=== PATIENT | female | born 1930 | race Caucasian/White ===

== ENCOUNTER 2017-05-22 16:27 | Emergency (ER) | payer MEDICARE, OTHER ==
[~2017-05-22] VITALS: Ht 165.1 cm; Wt 68.3 kg
[~2017-05-22 16:27] MED LIST changes: -CEPH500C24; -CLON-329
--- NOTE | 2017-05-22 16:31 | ER Report ---
History and Physical Time Seen By MD: 16:30 HPI/ROS CHIEF COMPLAINT: Fall, right hip pain, not acting right. HISTORY OF PRESENT ILLNESS: 86-year-old female patient presents to emergency room with complaint of fall, right hip pain and not acting right. Patient lives at home by herself, however she does have a caregiver the comes in and helps her. She states that today she's had a fever. She states that she has not had as much energy. She's also been complaining of right hip pain. Patient did have a fall yesterday, which required assistance getting up as well as a fall this morning. Patient denies any loss of consciousness, however she has had a fever of 101. patient has not had any changes in her medication. She normally takes tramadol for her pain. She denies any nausea, vomiting or diarrhea. Patient does have no complaints of chest pain. REVIEW OF SYSTEMS: Respiratory: No cough, no dyspnea. Cardiovascular: No chest pain, no palpitations. Gastrointestinal: No vomiting, no abdominal pain. Musculoskeletal: No back pain. Allergies: Coded Allergies: Sulfa (Sulfonamide Antibiotics) (Verified Allergy, Severe, RASH, 05/22/17) ciprofloxacin (Verified Allergy, Severe, SEIZURE, 05/22/17) levofloxacin (Verified Allergy, Unknown, 05/22/17) tetracycline (Verified Allergy, Unknown, UNKNOWN, 05/22/17) meperidine (Verified Adverse Reaction, Severe, LOWERS BP SEVERELY, 05/22/17 ) nitrofurantoin (Verified Adverse Reaction, Severe, SEIZURES, 05/22/17) Home Meds Reported Medications Cephalexin Monohydrate (CEPHALEXIN) 500 Mg Cap, QID 05/22/17 Clonidine Hcl (CLONIDINE HCL) 0.2 Mg Tablet, QDAY 05/22/17 Acetaminophen (TYLENOL) 325 Mg Tablet, 325 MG PO PRN Y for PAIN, TAB 12/21/16 Tolterodine Tartrate (TOLTERODINE TARTRATE) 2 Mg Tablet, 1 TAB PO QDAY 12/21/16 Tramadol Hcl (TRAMADOL HCL) 50 Mg Tablet, 2 TAB PO BID, TAB 12/21/16 Amlodipine Besylate (AMLODIPINE BESYLATE) 5 Mg Tablet, 1 TAB PO QDAY, TAB 12/21/16 Valsartan (DIOVAN) 320 Mg Tablet, 1 TAB PO QDAY 12/21/16 Divalproex Sodium (DEPAKOTE) 250 Mg Tablet.dr, 250 MG PO BID, TAB 12/21/16 Discontinued Reported Medications Clonidine Hcl (CLONIDINE HCL) Unknown Strength Tablet, PO QDAY, TAB 12/21/16 Discontinued Scripts Clindamycin Hcl (CLINDAMYCIN HCL) 300 Mg Capsule, 300 MG PO Q6H, #40 CAPSULE 0 Refills Prov:EDIS SALAZAR MD 12/23/16 Past Medical/Surgical History Patient has a past medical history of seizures, hyperlipidemia, hypertension, COPD, Crohn's disease, cholecystitis, urinary incontinence, arthritis, depression. Patient has surgical history of cataract removal, orthopedic surgery, incarcerated hernia with bowel resection, appendectomy. Patient has a family medical history of cancer, CAD, stroke. Reviewed Nurses Notes: Yes Hx Smoking: No Smoking Status: Never Smoker Exposure to Second Hand Smoke?: No Hx Substance Use Disorder: No Hx Alcohol Use: No Constitutional Vital Sign - Last 24 Hours 05/22/17 05/22/17 05/22/17 05/22/17 16:27 16:27 16:31 16:32 Temp 99.5 Pulse 87 95 Resp 16 B/P (MAP) 131/86 131/86 (101) Pulse Ox 93 84 O2 Delivery Nasal Cannula O2 Flow Rate 3.5 05/22/17 05/22/17 05/22/17 05/22/17 16:37 16:42 16:47 16:52 Pulse 93 83 83 86 Resp 55 50 37 24 Pulse Ox 94 97 95 94 05/22/17 05/22/17 05/22/17 05/22/17 16:57 17:00 17:02 17:07 Pulse 83 83 81 Resp 26 33 31 B/P (MAP) 181/94 (123) Pulse Ox 94 97 97 05/22/17 05/22/17 05/22/17 05/22/17 17:12 17:17 17:22 17:27 Pulse 81 86 86 79 Resp 41 26 23 21 Pulse Ox 96 92 93 95 05/22/17 05/22/17 05/22/17 05/22/17 17:30 17:32 17:37 17:42 Pulse 78 77 78 Resp 21 22 22 B/P (MAP) 158/78 (104) Pulse Ox 95 94 95 05/22/17 05/22/17 05/22/17 05/22/17 17:47 17:52 17:57 18:00 Pulse 76 75 77 Resp 17 20 20 B/P (MAP) 160/74 (102) Pulse Ox 94 95 97 05/22/17 05/22/17 05/22/17 18:02 18:07 18:12 Pulse 75 75 81 Resp 19 21 19 Pulse Ox 96 95 92 Intake and Output 05/22/17 05/22/17 05/23/17 15:00 23:00 07:00 Intake Total 100 ml Output Total 100 ml Balance 0 ml Physical Exam General Appearance: The patient is alert, has no immediate need for airway protection and no current signs of toxicity. ENT: Tympanic membranes are pearly-parr, auditory canals are patent, mucous membranes are moist. Respiratory: Chest is non tender, lungs are clear to auscultation. Cardiac: regular rate and rhythm Gastrointestinal: Abdomen is soft and non tender, no masses, bowel sounds normal. Musculoskeletal: Neck: Neck is supple and non tender. Extremities have full range of motion and are non tender. Patient has tenderness to the right hip, there is no bruising noted. Skin: No rashes or lesions. DIFFERENTIAL DIAGNOSIS: After history and physical exam differential diagnosis was considered for urinary tract infection, influenza, hip fracture, hip contusion, OR. Medical Decision Making Data Points Result Diagram: 05/22/17 1625 05/22/17 1625 Laboratory Hematology Test 05/22/17 16:25 05/22/17 16:40 05/22/17 16:55 Red Blood Count 3.70 M/uL (4.17-5.56) Mean Corpuscular Volume 83.3 fL (80.0-96.0) Mean Corpuscular Hemoglobin 27.5 pg (26.0-33.0) Mean Corpuscular Hemoglobin Concent 33.0 g/dL (32.0-36.0) Red Cell Distribution Width 14.8 % (11.5-14.5) Mean Platelet Volume 7.5 fL (7.2-11.1) Neutrophils (%) (Auto) 82.6 % (39.4-72.5) Lymphocytes (%) (Auto) 9.2 % (17.6-49.6) Monocytes (%) (Auto) 6.1 % (4.1-12.4) Eosinophils (%) (Auto) 0.5 % (0.4-6.7) Basophils (%) (Auto) 1.6 % (0.3-1.4) Nucleated RBC Relative Count (auto) 0.0 /100WBC Neutrophils # (Auto) 10.1 K/uL (2.0-7.4) Lymphocytes # (Auto) 1.1 K/uL (1.3-3.6) Monocytes # (Auto) 0.7 K/uL (0.3-1.0) Eosinophils # (Auto) 0.1 K/uL (0.0-0.5) Basophils # (Auto) 0.2 K/uL (0.0-0.1) Nucleated RBC Absolute Count (auto) 0.00 K/uL Sodium Level 134 mmol/L (137-145) Potassium Level 2.7 mmol/L (3.5-5.0) Chloride Level 92 mmol/L (98-107) Carbon Dioxide Level 31 mmol/L (22-31) Blood Urea Nitrogen 19 mg/dl (7-18) Creatinine 0.70 mg/dl (0.52-1.04) Glomerular Filtration Rate Calc > 60.0 Random Glucose 111 mg/dl (75-110) Calcium Level 8.9 mg/dl (8.4-10.2) Total Bilirubin 0.7 mg/dl (0.2-1.3) Aspartate Amino Transf (AST/SGOT) 31 U/L (0-35) Alanine Aminotransferase (ALT/SGPT) 26 U/L (0-56) Alkaline Phosphatase 97 U/L (0-126) Troponin I 0.303 ng/ml C-Reactive Protein 17.7 mg/dl (<1.0) Total Protein 8.4 gm/dl (6.3-8.2) Albumin 3.5 g/dl (3.5-5.0) Influenza Virus Type A (PCR) Negative (NEGATIVE) Influenza Virus Type B (PCR) Negative (NEGATIVE) Urine Color Yellow Urine Clarity Slightly-cloudy Urine pH 5.0 pH (4.8-9.5) Urine Specific [place] 1.016 Urine Protein 30 mg/dL (NEGATIVE) Urine Glucose (UA) Negative mg/dL (NEGATIVE) Urine Ketones Trace mg/dL (NEGATIVE) Urine Blood Large (NEGATIVE) Urine Nitrite Positive (NEGATIVE) Urine Bilirubin Negative (NEGATIVE) Urine Urobilinogen 4.0 mg/dL (0.2-1.9) Urine Leukocyte Esterase Small (NEGATIVE) Urine RBC 21 /HPF (0-2/HPF) Urine WBC 116 /HPF (0-5/HPF) Urine WBC Clumps Few /HPF Urine Squamous Epithelial Cells Few /LPF (NONE-FEW) Urine Amorphous Crystals Few /HPF Urine Bacteria Many /HPF (NONE-FEW) Urine Mucus Few /HPF (NONE-FEW) Chemistry Test 05/22/17 16:25 05/22/17 16:40 05/22/17 16:55 White Blood Count 12.2 k/uL (4.5-11.0) Red Blood Count 3.70 M/uL (4.17-5.56) Hemoglobin 10.2 g/dL (12.0-16.0) Hematocrit 30.9 % (34.0-47.0) Mean Corpuscular Volume 83.3 fL (80.0-96.0) Mean Corpuscular Hemoglobin 27.5 pg (26.0-33.0) Mean Corpuscular Hemoglobin Concent 33.0 g/dL (32.0-36.0) Red Cell Distribution Width 14.8 % (11.5-14.5) Platelet Count 221 K/uL (150-450) Mean Platelet Volume 7.5 fL (7.2-11.1) Neutrophils (%) (Auto) 82.6 % (39.4-72.5) Lymphocytes (%) (Auto) 9.2 % (17.6-49.6) Monocytes (%) (Auto) 6.1 % (4.1-12.4) Eosinophils (%) (Auto) 0.5 % (0.4-6.7) Basophils (%) (Auto) 1.6 % (0.3-1.4) Nucleated RBC Relative Count (auto) 0.0 /100WBC Neutrophils # (Auto) 10.1 K/uL (2.0-7.4) Lymphocytes # (Auto) 1.1 K/uL (1.3-3.6) Monocytes # (Auto) 0.7 K/uL (0.3-1.0) Eosinophils # (Auto) 0.1 K/uL (0.0-0.5) Basophils # (Auto) 0.2 K/uL (0.0-0.1) Nucleated RBC Absolute Count (auto) 0.00 K/uL Glomerular Filtration Rate Calc > 60.0 Calcium Level 8.9 mg/dl (8.4-10.2) Total Bilirubin 0.7 mg/dl (0.2-1.3) Aspartate Amino Transf (AST/SGOT) 31 U/L (0-35) Alanine Aminotransferase (ALT/SGPT) 26 U/L (0-56) Alkaline Phosphatase 97 U/L (0-126) Troponin I 0.303 ng/ml C-Reactive Protein 17.7 mg/dl (<1.0) Total Protein 8.4 gm/dl (6.3-8.2) Albumin 3.5 g/dl (3.5-5.0) Influenza Virus Type A (PCR) Negative (NEGATIVE) Influenza Virus Type B (PCR) Negative (NEGATIVE) Urine Color Yellow Urine Clarity Slightly-cloudy Urine pH 5.0 pH (4.8-9.5) Urine Specific [place] 1.016 Urine Protein 30 mg/dL (NEGATIVE) Urine Glucose (UA) Negative mg/dL (NEGATIVE) Urine Ketones Trace mg/dL (NEGATIVE) Urine Blood Large (NEGATIVE) Urine Nitrite Positive (NEGATIVE) Urine Bilirubin Negative (NEGATIVE) Urine Urobilinogen 4.0 mg/dL (0.2-1.9) Urine Leukocyte Esterase Small (NEGATIVE) Urine RBC 21 /HPF (0-2/HPF) Urine WBC 116 /HPF (0-5/HPF) Urine WBC Clumps Few /HPF Urine Squamous Epithelial Cells Few /LPF (NONE-FEW) Urine Amorphous Crystals Few /HPF Urine Bacteria Many /HPF (NONE-FEW) Urine Mucus Few /HPF (NONE-FEW) Urinalysis Test 05/22/17 16:55 Urine Color Yellow Urine Clarity Slightly-cloudy Urine pH 5.0 pH (4.8-9.5) Urine Specific [place] 1.016 Urine Protein 30 mg/dL (NEGATIVE) Urine Glucose (UA) Negative mg/dL (NEGATIVE) Urine Ketones Trace mg/dL (NEGATIVE) Urine Blood Large (NEGATIVE) Urine Nitrite Positive (NEGATIVE) Urine Bilirubin Negative (NEGATIVE) Urine Urobilinogen 4.0 mg/dL (0.2-1.9) Urine Leukocyte Esterase Small (NEGATIVE) Urine RBC 21 /HPF (0-2/HPF) Urine WBC 116 /HPF (0-5/HPF) Urine WBC Clumps Few /HPF Urine Squamous Epithelial Cells Few /LPF (NONE-FEW) Urine Amorphous Crystals Few /HPF Urine Bacteria Many /HPF (NONE-FEW) Urine Mucus Few /HPF (NONE-FEW) EKG/Imaging EKG Interpretation 12 lead EKG: Rhythm: normal sinus rhythm with PVC Hamer: Left axis deviation QRS: normal ST segments: normal 12 lead EKG at 1854: Rhythm: normal sinus rhythm Hamer: normal QRS: normal ST segments: normal PVCs have resolved at this point in time. Imaging CHEST SINGLE AP Indication: Chest pain. Comparison: May 29, 2012 Findings: There is slight blunting of the right costophrenic angle which may reflect chronic scarring or a trace effusion. Linear platelike atelectasis is seen in the left lung base. No confluent infiltrate or air bronchograms. No pneumothorax. Heart size is mildly enlarged and unchanged. Thoracic aorta is tortuous and atherosclerotic. There is a hiatal hernia. Right paratracheal opacity in the upper chest is unchanged from 2013 and likely related to prominent vascularity. IMPRESSION: 1. Linear atelectasis left lung base. 2. Tiny right effusion versus chronic pleural scarring. Report Dictated By: Gabriele Knight at 05/22/2017 6:06 PM Report E-Signed By: Gabriele Knight at 05/22/2017 6:08 PM EXAMINATION: Right hip 2 views HISTORY: Fever. Right hip pain. COMPARISON: CT abdomen/pelvis 04/20/2012. FINDINGS: The bones are diffusely demineralized, which limits the sensitivity of the exam. There are advanced chronic degenerative changes at the right hip, similar to the prior CT, with significant joint space narrowing and sclerosis. There is stable chronic subchondral cystic change along the femoral head with some mild flattening of the femoral head and chronic remodeling of the acetabulum. No radiographic evidence of acute fracture about the right hip or bony pelvis, allowing for the significant osteopenia. Normal alignment at the left hip. Joint space is preserved on the left. There is gaseous distention of partially visualized bowel loops in the lower abdomen and pelvis.. IMPRESSION: 1. Diffuse osteopenia limits the sensitivity of the exam. 2. 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 3. No radiographic evidence of acute fracture. Report Dictated By: Ugo Pham MD at 05/22/2017 5:58 PM Report E-Signed By: Ugo Pham MD at 05/22/2017 6:03 PM ED Course/Re-evaluation ED Course Patient was admitted to exam room, history and physical were obtained. Differential diagnoses were considered. On examination lungs are clear, heart was regular, patient did have some tenderness to the right hip. A CBC, CMP, chest x-ray, EKG, troponin, urinalysis were obtained. Patient did have an elevated white count of 12.2, patient has significant UTI with positive leukocyte esterase, positive nitrites. EKG showed a normal sinus rhythm with PVCs, left axis deviation, there is no ST elevation noted. The troponin was positive at 0.303. Patient was having frequent PVCs on the rhythm monitor in the room, she did have stretches where she would have a PVC every other beat. I discussed the case with the patient and her caregiver. The patient and caregiver both said that they would prefer to be transferred and be treated sore whether his cardiology. I spoke with Dr. Santana, insulation blanket maker, who stated that she felt this would be an appropriate admission for the hospitalist. I then spoke with Dr. Morris, hospitalist at [facility] who agreed to accept the patient for admission. She requested that the patient be treated for her hypokalemia as well as her urinary tract infection. Patient will have a dose of Rocephin prior to transfer. I discussed this with the patient and her caregiver and they verbalized understanding and agreement with plan. Decision to Disposition Date: May 22, 2017 Decision to Disposition Time: 18:36 Depart Departure Latest Vital Signs Vital Signs Date Time Temp Pulse Resp B/P (MAP) Pulse Ox O2 Delivery O2 Flow Rate FiO2 05/22/17 18:12 81 19 92 05/22/17 18:00 160/74 (102) 05/22/17 16:27 99.5 Nasal Cannula 05/22/17 16:27 3.5 Impression: Primary Impression: NSTEMI (non-ST elevated myocardial infarction) Additional Impressions: UTI (urinary tract infection) Hypokalemia Condition: Condition Unchanged Disposition: XFER TO [facility] Referrals: KELVIN HARE DO (PCP) Problem Qualifiers Additional Impressions: UTI (urinary tract infection) Urinary tract infection type: acute cystitis Hematuria presence: with hematuria Qualified Codes: N30.01 - Acute cystitis with hematuria WARREN PECK May 22, 2017 16:31
[2017-05-22] MEDS ORDERED: CLON-329 (16:35)
[2017-05-22] MEDS ORDERED: CEPH500C24 (16:35)
[2017-05-22] MEDS ORDERED: NS(*) 0.9% 500 ML BAG 500 ML IV ONE (16:37)
--- NOTE | 2017-05-22 16:48 | EKG ---
FACILITY: [facility] PATIENT NAME: LUKE URRUTIA : [id number] MR: [id number] V: [id number] EXAM DATE: ORDERING PHYSICIAN: WARREN PECK TECHNOLOGIST: LIO So Reason : WEAKNESS Blood Pressure : / mmHG Vent. Rate : 088 BPM Atrial Rate : 088 BPM P-R Int : 172 ms QRS Dur : 100 ms QT Int : 354 ms P-R-T Axes : 049 -35 020 degrees QTc Int : 428 ms Sinus rhythm with occasional premature ventricular complexes and premature atrial complexes Left axis deviation Minimal voltage criteria for LVH, may be normal variant Artifact in several leads - repeat if needed Abnormal ECG Confirmed by ELA RUTLEDGE ([id number]) on 05/22/2017 6:39:37 PM Referred By: CISCO Confirmed By:ELA RUTLEDGE
[2017-05-22] MEDS ORDERED: EMS NS 0.9%(*) 1000 ML BAG 1,000 ML IV ONE (16:50)
[2017-05-22 16:51] LABS: PLATELET COUNT, AUTOMATED 221 K/uL (150-450)
[2017-05-22] MEDS ORDERED: KCL (*) 20 MEQ/100 ML PREMIX 100 ML IV ONE (17:00)
[2017-05-22] MEDS ORDERED: traMADol 50 MG TAB PO ONE (17:00)
--- NOTE | 2017-05-22 18:07 | RADIOLOGY IMAGING REPORT ---
[place] [facility] [place] NAME: Carmen Terrazas : 1930 MR: [id number] V: [id number] EXAM DATE: ORDERING PHYSICIAN: WARREN PECK TECHNOLOGIST: Location: [facility] Patient: Carmen Terrazas : 1930 Visit/Account:[id number] Date of Sevice: 05/22/2017 EXAMINATION: Right hip 2 views HISTORY: Fever. Right hip pain. COMPARISON: CT abdomen/pelvis 04/20/2012. FINDINGS: The bones are diffusely demineralized, which limits the sensitivity of the exam. There are advanced chronic degenerative changes at the right hip, similar to the prior CT, with signi ficant joint space narrowing and sclerosis. There is stable chronic subchondral cystic change along t he femoral head with some mild flattening of the femoral head and chronic remodeling of the acetabulu m. No radiographic evidence of acute fracture about the right hip or bony pelvis, allowing for the signi ficant osteopenia. Normal alignment at the left hip. Joint space is preserved on the left. There is gaseous distention of partially visualized bowel loops in the lower abdomen and pelvis.. IMPRESSION: 1. Diffuse osteopenia limits the sensitivity of the exam. 2. 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 3. No radiographic evidence of acute fracture. Report Dictated By: Ugo Pham MD at 05/22/2017 5:58 PM Report E-Signed By: Ugo Pham MD at 05/22/2017 6:03 PM WSN:[id number]
--- NOTE | 2017-05-22 18:11 | RADIOLOGY IMAGING REPORT ---
FACILITY: [facility] [place] PATIENT NAME: Carmen Terrazas : 1930 MR: [id number] V: [id number] EXAM DATE: ORDERING PHYSICIAN: WARREN PECK TECHNOLOGIST: Location: [facility] Patient: Carmen Terrazas : 1930 Visit/Account:[id number] Date of Sevice: 05/22/2017 CHEST SINGLE AP Indication: Chest pain. Comparison: May 29, 2012 Findings: There is slight blunting of the right costophrenic angle which may reflect chronic scarring or a trac e effusion. Linear platelike atelectasis is seen in the left lung base. No confluent infiltrate or ai r bronchograms. No pneumothorax. Heart size is mildly enlarged and unchanged. Thoracic aorta is tortuous and atherosclerotic. There is a hiatal hernia. Right paratracheal opacity in the upper chest is unchanged from 2013 and likely rel ated to prominent vascularity. IMPRESSION: 1. Linear atelectasis left lung base. 2. Tiny right effusion versus chronic pleural scarring. Report Dictated By: Gabriele Knight at 05/22/2017 6:06 PM Report E-Signed By: Gabriele Knight at 05/22/2017 6:08 PM WSN:[id number]
[2017-05-22] MEDS ORDERED: cefTRIAXone(*) 1 GM VIAL 1 GM in NS(*) 0.9% 100 ML ADDVANT BAG 100 ML IVPB ONE (18:30)
[2017-05-22] MEDS ORDERED: fentaNYL CITR 100 MCG/2 ML AMP IVP ONE (18:45)
[2017-05-22 19:30] VITALS: BP 178/79
--- NOTE | 2017-05-22 21:01 | EKG ---
[place] [facility] [place] NAME: LUKE URRUTIA : [id number] MR: [id number] V: [id number] EXAM DATE: ORDERING PHYSICIAN: WARREN PECK TECHNOLOGIST: SHARYN Test Reason : CHEST HEAVINESS Blood Pressure : / mmHG Vent. Rate : 075 BPM Atrial Rate : 075 BPM P-R Int : 170 ms QRS Dur : 098 ms QT Int : 404 ms P-R-T Axes : 069 -29 033 degrees QTc Int : 451 ms Sinus rhythm Left axis deviation U waves present No acute appearing findings When compared with ECG of 22-MAY-2017 16:36, premature ventricular complexes are no longer present premature atrial complexes are no longer present Confirmed by ELA RUTLEDGE ([id number]) on 05/23/2017 5:30:05 AM Referred By: Confirmed By:ELA RUTLEDGE
== END 2017-05-22 19:53 | disposition short-term general hospital (02) ==
LOC: ER 16:31
DX: I21.4 Non-ST elevation (NSTEMI) myocardial infarction (principal); N30.01 Acute cystitis with hematuria; E87.6 Hypokalemia
CPT/HCPCS: 36415; 71045; 73502; 81001; 84484; 85025; 86140; 87040; 87077; 87088; 87186; 87502; 93005; 96361; 96365; 96367; 96375; 99285; A4353; A9270; J0696; J3010; J3480; J7050; 82040; 82247; 82310; 82374; 82435; 82565; 82947; 84075; 84132; 84155; 84295; 84450; 84460; 84520

== ENCOUNTER → 2017-05-22 | Outpatient (CLI) | payer MEDICARE, OTHER ==
[~2017-05-22] MED LIST: ACE325 PO; ACE500 PO; ACET-1966 PO; AML5 PO; AMLO-96 PO; AMLO2.5T74 PO; AMP500 PO; BET25 GT; CALC-465 PO; CEP500 PO; CEPH500C24; CEPH500T7 PO; CHOL100052 PO; CLI150 PO; CLIN300C99 PO; CLON-327 PO; CLON-329; CLON1 PO; DAR100 PO; DIV250 PO; DIVA125C12 PO; DIVA250T84 PO; DOXY-179 PO; EST625 PO; ESTR0.62 PO; EUCT TOP; FAMO20TA9 GT; FURO-1 PO; IBU200 PO; LEV15R INH; LOR5 PO; LOR5/325 PO; LOVA10TA63 PO; LOVA20TA99 PO; MOM PO; NIT100 PO; NIT3 PO; OXYGEN INH; PER PO; SIL20T TOP; TOLT2TAB PO; TRA50 PO; TRAM-420 PO; TRIC15T TOP; TYLENOL ARTHRITIS PO; TYLENOL PM PO; VAL80 PO; VALS320T12 PO
== END ==
LOC: AMB 19:30
PROVIDERS: ATTEND Nurse Practitioner
DX: I21.4 Non-ST elevation (NSTEMI) myocardial infarction (principal); N39.0 Urinary tract infection, site not specified; M25.551 Pain in right hip
CPT/HCPCS: A0425; A0426

== ENCOUNTER → 2017-05-22 | Outpatient (CLI) | payer MEDICARE, OTHER | LOC: AMB 16:05 | PROVIDERS: ATTEND Nurse Practitioner | DX: R53.1 Weakness (principal); R50.9 Fever, unspecified; R41.82 Altered mental status, unspecified | CPT/HCPCS: A0425; A0427 ==

== ENCOUNTER → 2017-05-30 | Outpatient (REF) | payer MEDICARE, OTHER ==
[~2017-05-30] MED LIST changes: +CEPH500C24; +CLON-329
== END ==
LOC: ZZSENDIN 16:56
PROVIDERS: ATTEND Family Medicine
DX: N39.0 Urinary tract infection, site not specified (principal)
CPT/HCPCS: 81001; 87088

== ENCOUNTER 2017-07-03 09:34 | Observation (INO) | payer MEDICARE, OTHER ==
[~2017-07-03 09:34] MED LIST changes: -ASPI81TA94 PO; -CLON-329 PO
--- NOTE | 2017-07-03 09:35 | ER Report ---
History and Physical Time Seen By MD: 09:34 HPI/ROS CHIEF COMPLAINT: Left lower extremity weakness HISTORY OF PRESENT ILLNESS: Patient is a 6-year-old female with history of seizure disorder who states that she thinks she had a seizure last night. She remembers feeling shaking in her left lower extremity. She denies losing consciousness although she does have a history of tonic-clonic and generalized seizures in the past she has not had one of these in quite some time. The reason she is brought to the emergency department today because she was unable to stand and get out of bed. Patient normally walks with a 4 point walker. She was found to have difficulty with balance in using her left lower extremity. She denies any chest pain or pressure. She does report some left arm achiness over the past few weeks. Patient denies any incontinence of urine or stool. She denies any infectious symptoms like fevers or chills. She denies abdominal pain. REVIEW OF SYSTEMS: Constitutional: No fever, no chills. Eyes: No discharge. ENT: No sore throat. Cardiovascular: No chest pain, no palpitations. Respiratory: No cough, no shortness of breath. Gastrointestinal: No abdominal pain, no vomiting. Genitourinary: No hematuria. Musculoskeletal: No back pain. Skin: No rashes. Neurological: Seizure, left lower extremity weakness Allergies: Coded Allergies: Sulfa (Sulfonamide Antibiotics) (Verified Allergy, Severe, RASH, 07/03/17) ciprofloxacin (Verified Allergy, Severe, SEIZURE, 07/03/17) levofloxacin (Verified Allergy, Unknown, 07/03/17) tetracycline (Verified Allergy, Unknown, UNKNOWN, 07/03/17) meperidine (Verified Adverse Reaction, Severe, LOWERS BP SEVERELY, 07/03/17) nitrofurantoin (Verified Adverse Reaction, Severe, SEIZURES, 07/03/17) Home Meds Reported Medications Aspirin (ASPIRIN) 81 Mg Tab.chew, 81 MG PO QDAY, TAB.CHEW 07/03/17 Clonidine Hcl (CLONIDINE HCL) 0.2 Mg Tablet, QDAY 05/22/17 Acetaminophen (TYLENOL) 325 Mg Tablet, 325 MG PO PRN Y for PAIN, TAB 12/21/16 Tolterodine Tartrate (TOLTERODINE TARTRATE) 2 Mg Tablet, 1 TAB PO QDAY 12/21/16 Tramadol Hcl (TRAMADOL HCL) 50 Mg Tablet, 2 TAB PO BID, TAB 12/21/16 Amlodipine Besylate (AMLODIPINE BESYLATE) 5 Mg Tablet, 1 TAB PO QDAY, TAB 12/21/16 Valsartan (DIOVAN) 320 Mg Tablet, 1 TAB PO QDAY 12/21/16 Divalproex Sodium (DEPAKOTE) 250 Mg Tablet.dr, 250 MG PO BID, TAB 12/21/16 Discontinued Reported Medications Cephalexin Monohydrate (CEPHALEXIN) 500 Mg Cap, QID 05/22/17 Past Medical/Surgical History Patient has a past medical history of seizures, hyperlipidemia, hypertension, COPD, Crohn's disease, cholecystitis, urinary incontinence, arthritis, depression. Patient has surgical history of cataract removal, orthopedic surgery, incarcerated hernia with bowel resection, appendectomy. History of bilateral lymphedema left greater than right Hx Smoking: No Smoking Status: Never Smoker Exposure to Second Hand Smoke?: No Hx Substance Use Disorder: No Hx Alcohol Use: No Constitutional Vital Sign - Last 24 Hours 07/03/17 07/03/17 07/03/17 07/03/17 09:39 09:42 09:49 10:04 Temp 99.0 Pulse 70 71 64 Resp 12 14 9 B/P (MAP) 181/79 (113) 181/79 Pulse Ox 92 92 95 O2 Delivery Room Air 07/03/17 07/03/17 07/03/17 07/03/17 10:19 10:24 11:09 11:24 Pulse 62 59 79 67 Resp 11 8 Pulse Ox 96 94 98 100 07/03/17 07/03/17 07/03/17 07/03/17 11:29 11:44 11:59 12:14 Pulse 66 68 63 Pulse Ox 99 100 87 99 Intake and Output 07/03/17 07/03/17 07/04/17 15:00 23:00 07:00 Intake Total 500 ml Output Total 10 ml Balance 490 ml Physical Exam General/Constitutional: Patient is awake, alert, nontoxic and in no acute respiratory distress. Head: Normocephalic and atraumatic. Eyes: Conjunctival clear, Pupils are equal and reactive to light. Extraocular muscles are intact and symmetrical. Sclera are clear and anicteric. Ears:External canals are clear. Tympanic membranes are clear with normal landmarks and light reflex. Nares: No rhinorrhea or bleeding. Turbinates are pink and moist. Oropharyngeal: Mucous membranes are moist. There is no pharyngeal erythema or exudate. There are no palatal petechiae. Uvula is midline and symmetrical. Neck: Supple, no adenopathy. Cardiovascular: Heart is regular rate and rhythm without audible murmurs, rubs or gallops. Pulmonary: Lungs are clear to auscultation bilaterally. There are no wheezes, rales, or rhonchi. Chest rise is symmetrical Abdomen: Soft, nontender, no guarding or peritoneal signs. Extremities: No gross deformities, No peripheral cyanosis. Able to move all 4 extremities. Patient with clubbed left foot Neuro: Alert and oriented X3, Cranial nerves 2 thru 12 are intact and symmetrical. Skin: No rashes, skin is warm dry and well perfused. Medical Decision Making Data Points Result Diagram: 07/03/17 0935 07/03/17 0935 Laboratory Hematology Test 07/03/17 09:35 07/03/17 11:15 Red Blood Count 3.77 M/uL (4.17-5.56) Mean Corpuscular Volume 83.8 fL (80.0-96.0) Mean Corpuscular Hemoglobin 28.1 pg (26.0-33.0) Mean Corpuscular Hemoglobin Concent 33.6 g/dL (32.0-36.0) Red Cell Distribution Width 16.2 % (11.5-14.5) Mean Platelet Volume 7.4 fL (7.2-11.1) Neutrophils (%) (Auto) 73.8 % (39.4-72.5) Lymphocytes (%) (Auto) 15.4 % (17.6-49.6) Monocytes (%) (Auto) 9.7 % (4.1-12.4) Eosinophils (%) (Auto) 0.4 % (0.4-6.7) Basophils (%) (Auto) 0.7 % (0.3-1.4) Nucleated RBC Relative Count (auto) 0.0 /100WBC Neutrophils # (Auto) 6.3 K/uL (2.0-7.4) Lymphocytes # (Auto) 1.3 K/uL (1.3-3.6) Monocytes # (Auto) 0.8 K/uL (0.3-1.0) Eosinophils # (Auto) 0.0 K/uL (0.0-0.5) Basophils # (Auto) 0.1 K/uL (0.0-0.1) Nucleated RBC Absolute Count (auto) 0.00 K/uL Sodium Level 139 mmol/L (137-145) Potassium Level 3.3 mmol/L (3.5-5.0) Chloride Level 96 mmol/L (98-107) Carbon Dioxide Level 30 mmol/L (22-31) Blood Urea Nitrogen 13 mg/dl (7-18) Creatinine 0.80 mg/dl (0.52-1.04) Glomerular Filtration Rate Calc > 60.0 Random Glucose 108 mg/dl (75-110) Calcium Level 8.8 mg/dl (8.4-10.2) Total Bilirubin 0.4 mg/dl (0.2-1.3) Aspartate Amino Transf (AST/SGOT) 21 U/L (0-35) Alanine Aminotransferase (ALT/SGPT) 10 U/L (0-56) Alkaline Phosphatase 108 U/L (0-126) Total Creatine Kinase 36 U/L (30-135) Troponin I < 0.012 ng/ml Total Protein 7.9 gm/dl (6.3-8.2) Albumin 3.5 g/dl (3.5-5.0) Valproic Acid (Depakene) Level 66.6 ug/ml Urine Color Colorless Urine Clarity Clear Urine pH 8.0 pH (4.8-9.5) Urine Specific [place] 1.003 Urine Protein Negative mg/dL (NEGATIVE) Urine Glucose (UA) Negative mg/dL (NEGATIVE) Urine Ketones Negative mg/dL (NEGATIVE) Urine Blood Small (NEGATIVE) Urine Nitrite Negative (NEGATIVE) Urine Bilirubin Negative (NEGATIVE) Urine Urobilinogen Negative mg/dL (0.2-1.9) Urine Leukocyte Esterase Negative (NEGATIVE) Urine RBC 1 /HPF (0-2/HPF) Urine WBC 1 /HPF (0-5/HPF) Urine Squamous Epithelial Cells None /LPF (NONE-FEW) Urine Bacteria Negative /HPF (NONE-FEW) Urine Mucus None /HPF (NONE-FEW) Chemistry Test 07/03/17 09:35 07/03/17 11:15 White Blood Count 8.5 k/uL (4.5-11.0) Red Blood Count 3.77 M/uL (4.17-5.56) Hemoglobin 10.6 g/dL (12.0-16.0) Hematocrit 31.6 % (34.0-47.0) Mean Corpuscular Volume 83.8 fL (80.0-96.0) Mean Corpuscular Hemoglobin 28.1 pg (26.0-33.0) Mean Corpuscular Hemoglobin Concent 33.6 g/dL (32.0-36.0) Red Cell Distribution Width 16.2 % (11.5-14.5) Platelet Count 291 K/uL (150-450) Mean Platelet Volume 7.4 fL (7.2-11.1) Neutrophils (%) (Auto) 73.8 % (39.4-72.5) Lymphocytes (%) (Auto) 15.4 % (17.6-49.6) Monocytes (%) (Auto) 9.7 % (4.1-12.4) Eosinophils (%) (Auto) 0.4 % (0.4-6.7) Basophils (%) (Auto) 0.7 % (0.3-1.4) Nucleated RBC Relative Count (auto) 0.0 /100WBC Neutrophils # (Auto) 6.3 K/uL (2.0-7.4) Lymphocytes # (Auto) 1.3 K/uL (1.3-3.6) Monocytes # (Auto) 0.8 K/uL (0.3-1.0) Eosinophils # (Auto) 0.0 K/uL (0.0-0.5) Basophils # (Auto) 0.1 K/uL (0.0-0.1) Nucleated RBC Absolute Count (auto) 0.00 K/uL Glomerular Filtration Rate Calc > 60.0 Calcium Level 8.8 mg/dl (8.4-10.2) Total Bilirubin 0.4 mg/dl (0.2-1.3) Aspartate Amino Transf (AST/SGOT) 21 U/L (0-35) Alanine Aminotransferase (ALT/SGPT) 10 U/L (0-56) Alkaline Phosphatase 108 U/L (0-126) Total Creatine Kinase 36 U/L (30-135) Troponin I < 0.012 ng/ml Total Protein 7.9 gm/dl (6.3-8.2) Albumin 3.5 g/dl (3.5-5.0) Valproic Acid (Depakene) Level 66.6 ug/ml Urine Color Colorless Urine Clarity Clear Urine pH 8.0 pH (4.8-9.5) Urine Specific [place] 1.003 Urine Protein Negative mg/dL (NEGATIVE) Urine Glucose (UA) Negative mg/dL (NEGATIVE) Urine Ketones Negative mg/dL (NEGATIVE) Urine Blood Small (NEGATIVE) Urine Nitrite Negative (NEGATIVE) Urine Bilirubin Negative (NEGATIVE) Urine Urobilinogen Negative mg/dL (0.2-1.9) Urine Leukocyte Esterase Negative (NEGATIVE) Urine RBC 1 /HPF (0-2/HPF) Urine WBC 1 /HPF (0-5/HPF) Urine Squamous Epithelial Cells None /LPF (NONE-FEW) Urine Bacteria Negative /HPF (NONE-FEW) Urine Mucus None /HPF (NONE-FEW) Toxicology Test 07/03/17 09:35 Valproic Acid (Depakene) Level 66.6 ug/ml Urinalysis Test 07/03/17 11:15 Urine Color Colorless Urine Clarity Clear Urine pH 8.0 pH (4.8-9.5) Urine Specific [place] 1.003 Urine Protein Negative mg/dL (NEGATIVE) Urine Glucose (UA) Negative mg/dL (NEGATIVE) Urine Ketones Negative mg/dL (NEGATIVE) Urine Blood Small (NEGATIVE) Urine Nitrite Negative (NEGATIVE) Urine Bilirubin Negative (NEGATIVE) Urine Urobilinogen Negative mg/dL (0.2-1.9) Urine Leukocyte Esterase Negative (NEGATIVE) Urine RBC 1 /HPF (0-2/HPF) Urine WBC 1 /HPF (0-5/HPF) Urine Squamous Epithelial Cells None /LPF (NONE-FEW) Urine Bacteria Negative /HPF (NONE-FEW) Urine Mucus None /HPF (NONE-FEW) EKG/Imaging Imaging [place] [facility] [place] NAME: Carmen Terrazas : 1930 MR: [id number] V: [id number] EXAM DATE: ORDERING PHYSICIAN: EDIS SALAZAR TECHNOLOGIST: Location: [facility] - [place] Patient: Carmen Terrazas : 1930 Visit/Account:[id number] Date of Sevice: 07/03/2017 HEAD W/O CONTRAST History: weakness TECHNIQUE: Contiguous angled axial images were obtained from the vertex through the base of the skull without intravenous contrast. One of the following dose optimization techniques was utilized in the performance of this exam: Automated exposure control; adjustment of the mA and/or kV according to the patient's size; or use of an iterative reconstruction technique. Specific details can be referenced in the facility's radiology CT exam operational policy. COMPARISON STUDIES: Comparison made to report from March 2012. The images cannot be retrieved. FINDINGS: Ventricles / sulci / fissures: Ventricles sulci are very prominent compatible with global atrophy. Masses / hemorrhage / midline shift: Negative. Intra-axial findings: Mild confluent decreased attenuation in the periventricular white matter. Extra-axial fluid collections: Negative. Intracranial vasculature and dural sinuses: Negative. Skull base / calvarium: Evidence of several old denae holes in the left parietal bone. Scalp: negative Visualized mastoid air cells / paranasal sinuses: Well aerated. Orbits: Evidence of previous cataract surgery. IMPRESSION: No acute pathology identified. Moderately advanced brain atrophy. This may all be related to the patient's advanced age but underlying neurodegenerative disorder such as Alzheimer's disease can also give this appearance. Report Dictated By: Khoa Narvaez MD at 07/03/2017 11:01 AM Report E-Signed By: Khoa Narvaez MD at 07/03/2017 11:07 AM WSN:[id number] [place] [facility] [place]IENT NAME: Carmen Terrazas : 1930 MR: [id number] V: [id number] EXAM DATE: ORDERING PHYSICIAN: EDIS SALAZAR TECHNOLOGIST: Location: [facility] [place] Patient: Carmen Terrazas : 1930 Visit/Account:[id number] Date of Sevice: 07/03/2017 CHEST PA AND LAT History: weakness FINDINGS: Comparison studies: Comparison radiograph 05/22/2017 Tubes and Lines: None. Lungs and pleura: There is blunting left costophrenic angle which is new from the previous study minimal blunting right costophrenic angle unchanged. Mediastinum: normal. Cardiac silhouette: Borderline enlarged. There is a double density projecting over the heart which represents a large hiatal hernia. This is unchanged. Osseous structures: Diffuse bony demineralization compatible osteopenia. IMPRESSION: Very small bilateral pleural effusions. No evidence of pneumonia. Large hiatal hernia. Report Dictated By: Khoa Narvaez MD at 07/03/2017 11:07 AM Report E-Signed By: Khao Narvaez MD at 07/03/2017 11:09 AM WSN:[id number] ED Course/Re-evaluation Clinical Indication for ER IV: IV Access ED Course 07/03/2017 10:06:32 am patient with left lower extremity weakness. Plan at this time will be CT of the head will perform a cardiac workup. Pending workup we will perform an ambulatory test on the patient. Re-evaluation 07/03/2017 1:09:16 pm patient was unable to ambulate with her walker normally. Still having extreme weakness in the left lower extremity. Plan at this time will be to admit to the hospitalist for evaluation and physical therapy Decision to Disposition Date: Jul 03, 2017 Decision to Disposition Time: 13:28 Depart Departure Latest Vital Signs Vital Signs Date Time Temp Pulse Resp B/P (MAP) Pulse Ox O2 Delivery O2 Flow Rate FiO2 07/03/17 12:14 63 99 07/03/17 10:24 8 07/03/17 09:42 99.0 181/79 Room Air Impression: Primary Impression: Weakness Condition: Condition Unchanged Disposition: Admitted from ER (to [facility]) Referrals: KELVIN HARE DO (PCP) EDIS SALAZAR MD Jul 03, 2017 09:35
[2017-07-03] MEDS ORDERED: NS(*) 0.9% 500 ML BAG 500 ML IV ONE (10:07)
[2017-07-03 10:17] LABS: PLATELET COUNT, AUTOMATED 291 K/uL (150-450)
--- NOTE | 2017-07-03 10:28 | EKG ---
FACILITY: [facility] - [place] PATIENT NAME: LUKE URRUTIA : [id number] MR: [id number] V: [id number] EXAM DATE: ORDERING PHYSICIAN: EDIS SALAZAR TECHNOLOGIST: EVELYN Test Reason : weakness Blood Pressure : / mmHG Vent. Rate : 065 BPM Atrial Rate : 065 BPM P-R Int : 200 ms QRS Dur : 100 ms QT Int : 384 ms P-R-T Axes : 059 -31 008 degrees QTc Int : 399 ms Sinus rhythm with premature atrial complexes Left axis deviation Minimal voltage criteria for LVH, may be normal variant Abnormal ECG When compared with ECG of 22-MAY-2017 18:54, Previous ECG has undetermined rhythm, needs review Inverted T waves have replaced nonspecific T wave abnormality in Inferior leads QT has shortened Confirmed by CARA BORGES ([id number]) on 07/03/2017 11:29:03 AM Referred By: MARTIN Confirmed By:CARA BORGES
--- NOTE | 2017-07-03 11:11 | RADIOLOGY IMAGING REPORT ---
FACILITY: [facility] - [place] PATIENT NAME: Carmen Terrazas : 1930 MR: [id number] V: [id number] EXAM DATE: ORDERING PHYSICIAN: EDIS SALAZAR TECHNOLOGIST: Location: [facility] - [place] Patient: Carmen Terrazas : 1930 Visit/Account:[id number] Date of Sevice: 07/03/2017 HEAD W/O CONTRAST History: weakness TECHNIQUE: Contiguous angled axial images were obtained from the vertex through the base of the sku ll without intravenous contrast. One of the following dose optimization techniques was utilized in e performance of this exam: Automated exposure control; adjustment of the mA and/or kV according to t he patient's size; or use of an iterative reconstruction technique. Specific details can be referen hari in the facility's radiology CT exam operational policy. COMPARISON STUDIES: Comparison made to report from March 2012. The images cannot be retrieved. FINDINGS: Ventricles / sulci / fissures: Ventricles sulci are very prominent compatible with global atrophy. Masses / hemorrhage / midline shift: Negative. Intra-axial findings: Mild confluent decreased attenuation in the periventricular white matter. Extra-axial fluid collections: Negative. Intracranial vasculature and dural sinuses: Negative. Skull base / calvarium: Evidence of several old denae holes in the left parietal bone. Scalp: negative Visualized mastoid air cells / paranasal sinuses: Well aerated. Orbits: Evidence of previous cataract surgery. IMPRESSION: No acute pathology identified. Moderately advanced brain atrophy. This may all be related to the patient's advanced age but underlyi ng neurodegenerative disorder such as Alzheimer's disease can also give this appearance. Report Dictated By: Khoa Narvaez MD at 07/03/2017 11:01 AM Report E-Signed By: Khoa Narvaez MD at 07/03/2017 11:07 AM WSN:[id number]
--- NOTE | 2017-07-03 11:14 | RADIOLOGY IMAGING REPORT ---
[place] [facility] [place]: Carmen Terrazas : 1930 MR: [id number] V: [id number] EXAM DATE: ORDERING PHYSICIAN: EDIS SALAZAR TECHNOLOGIST: [place] [facility] [place]: Carmen Terrazas : 1930 Visit/Account:[id number] Date of Sevice: 07/03/2017 CHEST PA AND LAT History: weakness FINDINGS: Comparison studies: Comparison radiograph 05/22/2017 Tubes and Lines: None. Lungs and pleura: There is blunting left costophrenic angle which is new from the previous study mi nimal blunting right costophrenic angle unchanged. Mediastinum: normal. Cardiac silhouette: Borderline enlarged. There is a double density projecting over the heart which re presents a large hiatal hernia. This is unchanged. Osseous structures: Diffuse bony demineralization compatible osteopenia. IMPRESSION: Very small bilateral pleural effusions. No evidence of pneumonia. Large hiatal hernia. Report Dictated By: Khoa Narvaez MD at 07/03/2017 11:07 AM Report E-Signed By: Khoa Narvaez MD at 07/03/2017 11:09 AM WSN:[id number]
[2017-07-03 13:18] VITALS: BP 236/92
[2017-07-03] MEDS ORDERED: ASPI81TA94 PO (13:25)
--- NOTE | 2017-07-03 14:29 | History & Physical ---
History of Present Illness Chief Complaint Left leg weakness History of Present Illness This patient presented to the emergency room complaining of left leg weakness. She first noted this last night while lying in bed and describes it as a seizure in her leg. She was unable to get out of bed herself and also struggled with the help of family. Her symptoms have improved slightly through the day, but her strength is still diminished. History Problems: (1) Essential hypertension (2) Seizure disorder Home Meds Reported Medications Aspirin (ASPIRIN) 81 Mg Tab.chew, 81 MG PO QDAY, TAB.CHEW 07/03/17 Clonidine Hcl (CLONIDINE HCL) 0.2 Mg Tablet, QDAY 05/22/17 Acetaminophen (TYLENOL) 325 Mg Tablet, 325 MG PO PRN Y for PAIN, TAB 12/21/16 Tolterodine Tartrate (TOLTERODINE TARTRATE) 2 Mg Tablet, 1 TAB PO QDAY 12/21/16 Tramadol Hcl (TRAMADOL HCL) 50 Mg Tablet, 2 TAB PO BID, TAB 12/21/16 Amlodipine Besylate (AMLODIPINE BESYLATE) 5 Mg Tablet, 1 TAB PO QDAY, TAB 12/21/16 Valsartan (DIOVAN) 320 Mg Tablet, 1 TAB PO QDAY 12/21/16 Divalproex Sodium (DEPAKOTE) 250 Mg Tablet.dr, 250 MG PO BID, TAB 12/21/16 Discontinued Reported Medications Cephalexin Monohydrate (CEPHALEXIN) 500 Mg Cap, QID 05/22/17 Allergies: Coded Allergies: Sulfa (Sulfonamide Antibiotics) (Verified Allergy, Severe, RASH, 07/03/17) ciprofloxacin (Verified Allergy, Severe, SEIZURE, 07/03/17) levofloxacin (Verified Allergy, Unknown, 07/03/17) tetracycline (Verified Allergy, Unknown, UNKNOWN, 07/03/17) meperidine (Verified Adverse Reaction, Severe, LOWERS BP SEVERELY, 07/03/17) nitrofurantoin (Verified Adverse Reaction, Severe, SEIZURES, 07/03/17) Patient History: FH: cancer unspecified relation Hx Smoking: No Smoking Status: Never Smoker Exposure to Second Hand Smoke?: No Caffeine Intake: Coffee, Soda Caffeine/Cups Per Day: avoids caffine Hx Alcohol Use: No Hx Substance Use Disorder: No Social Drug Use: Never Review of Systems All Systems Reviewed/Normal: Yes, Except as Noted Neurological: Weakness Exam Vital Signs Vital Signs Date Time Temp Pulse Resp B/P (MAP) Pulse Ox O2 Delivery O2 Flow Rate FiO2 07/03/17 13:27 99 Nasal Cannula 3.0 07/03/17 13:18 98.6 68 16 236/92 (140) Neuro: No Gross deficits Eyes: PERRLA Cardiovascular: Regular Rate and Rhythm Respiratory: Clear to Auscultation GI: Abd Soft and Non-Tender Extremities: No Edema Integumentary: No Cyanosis Medical Decision Making Data Points Result Diagram: 07/03/17 0935 07/03/17 0935 EKG / Imaging Imaging CT head reviewed. Assessment and Plan Problems: (1) Left leg weakness Assessment & Plan: She did present with left leg weakness that started last night. A CT scan of the head showed only age related changes. She does not have any appreciable weakness on exam, but is unable to maintain her balance when standing. An MRI of the brain and therapy consults have been ordered. (2) Essential hypertension Assessment & Plan: She is on chronic treatment with clonidine, amlodipine, and valsartan. (3) Seizure disorder Assessment & Plan: She is on chronic treatment with Depakote. Copies to: KELVIN HARE DO Venous Thromboembolism Antithrombotics Is Pt On Any Antithrombotics?: No Exam Sepsis Risk: No Definite Risk CARA BORGES DO Jul 03, 2017 14:29
[2017-07-03 16:09] VITALS: BP 209/89
[2017-07-03 19:04] VITALS: BP 160/76
[2017-07-03] MEDS: DIVALPROEX SOD DR 250 MG TAB PO SCH (21:25)
[2017-07-04] VITALS (7 sets, daily range): BP systolic 129–220; BP diastolic 68–112
[2017-07-04] MEDS ORDERED: cloNIDine HCL 0.1 MG TAB PO ONE (00:35)
[2017-07-04] MEDS ORDERED: KCL (*) 20 MEQ/100 ML PREMIX 100 ML IV ONE ×2 (07:05→09:05)
[2017-07-04] MEDS ORDERED: NS(*) 0.9% 500 ML BAG 500 ML ONE (07:14)
[2017-07-04] MEDS: amLODIPine BESYL(*) 5 MG TAB PO SCH (07:38)
[2017-07-04] MEDS: DIVALPROEX SOD DR 250 MG TAB PO SCH ×2 (07:38→20:31)
[2017-07-04] MEDS: VALSARTAN 80 MG TAB PO SCH (07:38)
[2017-07-04] MEDS: cloNIDine HCL 0.1 MG TAB PO SCH (07:39)
[2017-07-04] MEDS: ASPIRIN 81 MG CHEW PO SCH (07:39)
[2017-07-04] MEDS: TOLTERODINE PO SCH (07:39)
[2017-07-04] MEDS ORDERED: GADOBENATE 529MG/1ML 15ML VIAL IVP ONE (09:06)
--- NOTE | 2017-07-04 10:29 | RADIOLOGY IMAGING REPORT ---
FACILITY: [facility] PATIENT NAME: Carmen Terrazas : 1930 MR: [id number] V: [id number] EXAM DATE: ORDERING PHYSICIAN: CARA BORGES TECHNOLOGIST: Location: [facility] Patient: Carmen Terrazas : 1930 Visit/Account:[id number] Date of Sevice: 07/04/2017 EXAMINATION: MRI Brain without intravenous contrast MRI Brain with intravenous contrast HISTORY: Left leg weakness. COMPARISON: Noncontrast head CT dated 07/03/2017. TECHNIQUE: Multi-planar, multi-sequence brain MRI was performed before and after IV gadolinium. CONTRAST: 12 mL of IV MultiHance FINDINGS: Brain volume: Moderate generalized volume loss. Sagittal midline structures: Negative. Ventricles: Negative. Acute ischemic changes: None. Hemorrhage: None. Masses / edema: None. Enhancement: Negative. [place]-white: Negative. White matter: Mild to moderate chronic microvascular ischemic changes in the periventricular white m atter and anita. Vessels: Negative. Extra-axial: Negative. Calvarium / scalp: Negative. Skull base: Negative. Visualized sinuses / orbits: Negative. Visualized upper neck: Negative. IMPRESSION: 1. No acute intracranial abnormality or mass. 2. Moderate generalized brain parenchymal volume loss. 3. Mild to moderate chronic microvascular ischemic changes in the periventricular white matter and p ons. Report Dictated By: Familia Valdovinos MD at 07/04/2017 10:20 AM Report E-Signed By: Familia Valdovinos MD at 07/04/2017 10:24 AM WSN:[email or web address]
[2017-07-04] MEDS ORDERED: MAGNESIUM SUL* 2 GM/50 ML IVPB 50 ML IVPB ONE (14:40)
--- NOTE | 2017-07-04 14:53 | Hospitalist Progress Note ---
Subjective Progress Notes Subjective The patient denies new issues. Physical Exam Vital Signs Date Time Temp Pulse Resp B/P (MAP) Pulse Ox O2 Delivery O2 Flow Rate FiO2 07/04/17 10:45 98.2 63 16 162/74 (103) 100 Nasal Cannula 2.5 Intake and Output 07/05/17 07:00 Intake Total 320 ml Balance 320 ml Intake Oral 120 ml IV Total 200 ml # Voids 1 # Bowel Movements 1 General Appearance: Alert, Awake, No Acute Distress, Afebrile Neuro: No Gross deficits Cardiovascular: Regular Rate and Rhythm Respiratory: Clear to Auscultation GI: Soft and Non-Tender Extremities: Warm, Perfused Integumentary: Generalized Fragile Skin Psych: Appropriate Mood & Affect Result Diagram: 07/03/17 0935 07/04/17 0625 Assessment and Plan Problems: (1) Left leg weakness Assessment & Plan: She did present with left leg weakness that started last night. A CT scan of the head showed only age related changes. MRI is also negative for acute event. She did not have any appreciable weakness on exam, but was initially unable to maintain her balance when standing. This is much improved. PT and OT are working with her. She does have hypokalemia and hypomagnesemia which are being corrected as well. (2) Essential hypertension Assessment & Plan: She is on chronic treatment with clonidine, amlodipine, and valsartan. (3) Seizure disorder Assessment & Plan: She is on chronic treatment with Depakote. (4) Hypokalemia Status: Acute Assessment & Plan: Will replace with IV initially and then oral. She states she is usually low. Will need to DC on a small dose of daily potassium for home. (5) Hypomagnesemia Status: Acute Assessment & Plan: Will give 2 g IV today. Time Spent on Plan of Care: < 30 min Exam Sepsis Risk: No Definite Risk BEAR RUTLEDGE MD Jul 04, 2017 14:53
[2017-07-05 03:34] VITALS: BP 222/98
[2017-07-05 05:51] LABS: PLATELET COUNT, AUTOMATED 188 K/uL (150-450)
[2017-07-05] MEDS ORDERED: cloNIDine HCL 0.1 MG TAB PO ONE (06:35)
[2017-07-05 07:20] VITALS: BP 198/96
[2017-07-05] MEDS: amLODIPine BESYL(*) 5 MG TAB PO SCH (08:44)
[2017-07-05] MEDS: cloNIDine HCL 0.1 MG TAB PO SCH ×2 (08:44→20:42)
[2017-07-05] MEDS: traMADol 50 MG TAB PO SCH ×2 (08:45→20:42)
[2017-07-05] MEDS: TOLTERODINE PO SCH (08:45)
[2017-07-05] MEDS: DIVALPROEX SOD DR 250 MG TAB PO SCH ×2 (08:45→20:42)
[2017-07-05] MEDS: VALSARTAN 80 MG TAB PO SCH (08:45)
[2017-07-05] MEDS: ASPIRIN 81 MG CHEW PO SCH (08:45)
[2017-07-05] MEDS ORDERED: INFLUENZA VIRUS VAC 0.5 ML SYR IM ONLY ONE (09:00)
[2017-07-05 09:19] VITALS: BP_SYST 123; BP_SYST 130; BP_DIAS 69; BP_DIAS 79
--- NOTE | 2017-07-05 09:43 | EKG ---
FACILITY: [facility] PATIENT NAME: LUKE URRUTIA : [id number] MR: [id number] V: [id number] EXAM DATE: ORDERING PHYSICIAN: ELA RUTLEDGE TECHNOLOGIST: LORI So Reason : TACHY Blood Pressure : / mmHG Vent. Rate : 060 BPM Atrial Rate : 060 BPM P-R Int : 186 ms QRS Dur : 092 ms QT Int : 408 ms P-R-T Axes : 048 -45 003 degrees QTc Int : 408 ms Sinus rhythm with premature atrial complexes Minimal voltage criteria for LVH, may be normal variant Abnormal ECG When compared with ECG of 03-JUL-2017 10:18, No significant change was found Confirmed by ELA RUTLEDGE ([id number]) on 07/05/2017 5:24:43 PM Referred By: MATY Confirmed By:ELA RUTLEDGE
[2017-07-05] MEDS: POTASSIUM CHL 10 MEQ TABCR PO SCH ×2 (09:53→17:19)
[2017-07-05 11:08] VITALS: BP 128/72
--- NOTE | 2017-07-05 11:38 | Hospitalist Progress Note ---
Subjective Progress Notes Subjective She reports feeling improved overall. Physical Exam Vital Signs Date Time Temp Pulse Resp B/P (MAP) Pulse Ox O2 Delivery O2 Flow Rate FiO2 07/05/17 11:08 98.1 56 18 128/72 (90) 97 Nasal Cannula 2.5 61 Intake and Output 07/06/17 07:00 Intake Total 0 ml Balance 0 ml Intake Oral 0 ml # Voids 1 # Bowel Movements 1 General Appearance: Alert, Awake Cardiovascular: Regular Rate and Rhythm (with occasional ectopy) Respiratory: Clear to Auscultation GI: Soft and Non-Tender Extremities: Warm, Perfused Psych: Alert & Oriented X3 Result Diagram: 07/05/1753907/05/17539 Item Value Date Time Magnesium Level 2.0 mg/dl 07/05/17539 Calcium Level 9.1 mg/dl 07/05/17539 Assessment and Plan Problems: (1) Left leg weakness Assessment & Plan: She did present with left leg weakness that started last night. CT scan of the head showed only age related changes. MRI is also negative for acute event. She did not have any appreciable weakness on exam, but was initially unable to maintain her balance when standing. This is much improved. PT and OT are working with her. She does have hypokalemia and hypomagnesemia which are being corrected as well. (2) Essential hypertension Assessment & Plan: She is on chronic treatment with clonidine, amlodipine, and valsartan. (3) Seizure disorder Assessment & Plan: She is on chronic treatment with Depakote. (4) Hypokalemia Status: Acute Assessment & Plan: Will replace with oral. She states she is usually low. Will need to DC on a small dose of daily potassium for home. (5) Hypomagnesemia Status: Acute Assessment & Plan: Improved today. Recheck in AM. Exam Sepsis Risk: No Definite Risk ELA RUTLEDGE MD Jul 05, 2017 11:38
[2017-07-05 15:42] VITALS: BP 120/66
[2017-07-05] MEDS ORDERED: cefTRIAXone 1 GM VIAL IVP SCH (20:00)
[2017-07-05 20:40] VITALS: BP_SYST 110; BP_SYST 120; BP_DIAS 66; BP_DIAS 69
[2017-07-06 04:55] VITALS: BP 107/96
[2017-07-06 05:53] LABS: PLATELET COUNT, AUTOMATED 175 K/uL (150-450)
[2017-07-06 07:36] VITALS: BP 124/70
[2017-07-06] MEDS: cloNIDine HCL 0.1 MG TAB PO SCH (08:42)
[2017-07-06] MEDS: ASPIRIN 81 MG CHEW PO SCH (08:43)
[2017-07-06] MEDS: traMADol 50 MG TAB PO SCH (08:43)
[2017-07-06] MEDS: amLODIPine BESYL(*) 5 MG TAB PO SCH (08:43)
[2017-07-06] MEDS: POTASSIUM CHL 10 MEQ TABCR PO SCH (08:43)
[2017-07-06] MEDS: VALSARTAN 80 MG TAB PO SCH (08:43)
[2017-07-06] MEDS: TOLTERODINE PO SCH (08:43)
[2017-07-06] MEDS: DIVALPROEX SOD DR 250 MG TAB PO SCH (08:43)
[2017-07-06] MEDS ORDERED: CLON-329 PO (10:52)
--- NOTE | 2017-07-06 10:55 | Hospitalist Depart ---
Discharge Summary Reason for Hosp/Final Diag: (1) Left leg weakness Hospital Course & Plan: She did present with left leg weakness. CT scan of the head showed only age related changes and her MRI was also negative for acute stroke. She was found to have chronic microvascular ischemic changes. Her symptoms have now mostly resolved and she has been cleared by physical therapy. (2) Essential hypertension Hospital Course & Plan: She is on chronic treatment with clonidine, amlodipine , and valsartan. Her clonidine dose was increased to twice daily. (3) Seizure disorder Hospital Course & Plan: She is on chronic treatment with Depakote. (4) Hypokalemia Status: Acute Hospital Course & Plan: Resolved with supplementation. (5) Hypomagnesemia Status: Acute Hospital Course & Plan: Improved today. Recheck in AM. Departure Latest Vital Signs Vital Signs 07/06/17 07/06/17 07/06/17 07:36 08:20 09:30 Temp 98.2 Pulse 64 Resp 20 B/P (MAP) 124/70 (88) Pulse Ox 94 O2 Delivery Nasal Cannula O2 Flow Rate 2.5 Weight (Pounds): 127 Weight (Ounces): 8.0 Result Diagram: 07/06/17 0525 07/06/17 0800 Condition: Improved Discharge: Home, Home Health PT/OT Follow Up For: PT For Strengthening Home Health RN Follow Up For: Nursing Assessment, Wound Shelter Health [employer] Follow Up For: ADL Assistance Discharge Instructions Home Meds Active Scripts Clonidine Hcl (CLONIDINE HCL) 0.2 Mg Tablet, 0.2 MG PO BID, #60 TAB Prov:CARA BORGES DO 07/06/17 Reported Medications Aspirin (ASPIRIN) 81 Mg Tab.chew, 81 MG PO QDAY, TAB.CHEW 07/03/17 Acetaminophen (TYLENOL) 325 Mg Tablet, 325 MG PO PRN Y for PAIN, TAB 12/21/16 Tolterodine Tartrate (TOLTERODINE TARTRATE) 2 Mg Tablet, 1 TAB PO QDAY 12/21/16 Tramadol Hcl (TRAMADOL HCL) 50 Mg Tablet, 2 TAB PO BID, TAB 12/21/16 Amlodipine Besylate (AMLODIPINE BESYLATE) 5 Mg Tablet, 1 TAB PO QDAY, TAB 12/21/16 Valsartan (DIOVAN) 320 Mg Tablet, 1 TAB PO QDAY 12/21/16 Divalproex Sodium (DEPAKOTE) 250 Mg Tablet.dr, 250 MG PO BID, TAB 12/21/16 Discontinued Reported Medications Clonidine Hcl (CLONIDINE HCL) 0.2 Mg Tablet, QDAY 05/22/17 Cephalexin Monohydrate (CEPHALEXIN) 500 Mg Cap, QID 05/22/17 Diet: Regular Activity: As Tolerated Venous Thromboembolism Antithrombotics Is Pt On Any Antithrombotics?: No [id number] Certification Face to Face Home Health Certification Institutional Provider conducted the [id number] encounter. Electronic Undersigning Physician Certifies Home Health. I certify that the patient has been under my care and that I had a [id number] encounter that meets the physician [id number] encounter requirements with this patient. This patient is home-bound due to safety issues and continues to require assistance with ADL's. I certify that based on my findings, that Nursing, Aides and the following Home Health services are medically necessary: Medical Necessity: Nursing, Rehab Date Face to Face Conducted: Jul 06, 2017 CARA BORGES DO Jul 06, 2017 10:55
[2017-07-06] MEDS ORDERED: cefTRIAXone(*) 1 GM VIAL 1 GM in NS(*) 0.9% 100 ML ADDVANT BAG 100 ML IVP SCH (20:00)
== END 2017-07-06 10:52 | disposition home health service (06) ==
LOC: ER 09:47 → INTOOBSV 12:48 → MED 12:48
PROVIDERS: ADMIT Family Medicine; ATTEND Family Medicine
DX: R53.1 Weakness (principal); I10 Essential (primary) hypertension; G40.909 Epilepsy, unspecified, not intractable, without status epilepticus; E83.42 Hypomagnesemia; E87.6 Hypokalemia
CPT/HCPCS: 36415; 70450; 70553; 71046; 80164; 81001; 82550; 83735; 84443; 84484; 85025; 87077; 87088; 93005; 96360; 97116; 97161; 97165; 97535; 99285; A4353; A9270; A9577; G0378; J0696; J3475; J3480; J7040; 82040; 82247; 82310; 82374; 82435; 82565; 82947; 84075; 84132; 84155; 84295; 84450; 84460; 84520

== ENCOUNTER → 2017-07-03 | Outpatient (CLI) | payer MEDICARE, OTHER ==
[~2017-07-03] MED LIST changes: +ASPI81TA94 PO; +CLON-329 PO
== END ==
LOC: AMB 09:16
PROVIDERS: ATTEND Nurse Practitioner
DX: M62.81 Muscle weakness (generalized) (principal)
CPT/HCPCS: A0425; A0427

== ENCOUNTER 2017-07-07 12:33 | Emergency (ER) | payer MEDICARE, OTHER ==
--- NOTE | 2017-07-07 12:47 | ER Report ---
History and Physical Time Seen By MD: 12:44 HPI/ROS CHIEF COMPLAINT: Full arrest HISTORY OF PRESENT ILLNESS: Patient is an 86 female recently seen emergency recently and diagnosed with STEMI who was brought in today in full arrest she was evidently seen by her caregiver the caregiver said she was unresponsive EMS was notified cardiac of full arrest was initiated patient was unresponsive and noted PE 2 rounds of epi given prior to presentation here to the emergency department no additional history was available at that time patient was in full arrest initiated code within the department ACLS protocol enacted patient received multiple rounds of epinephrine and amiodarone calcium and bicarbonate no time had a viable pulse central line was placed code was terminated with end- tidal CO2 is less then 15 patient was asystolic time of of 12:42 PM REVIEW OF SYSTEMS: Respiratory: No active respiratory response Cardiovascular: No spontaneous cardiac activity Otherwise unable to obtain any review of systems Remainder of the 14 system rev: Yes Allergies: Coded Allergies: Sulfa (Sulfonamide Antibiotics) (Verified Allergy, Severe, RASH, 07/03/17) ciprofloxacin (Verified Allergy, Severe, SEIZURE, 07/03/17) levofloxacin (Verified Allergy, Unknown, 07/03/17) tetracycline (Verified Allergy, Unknown, UNKNOWN, 07/03/17) meperidine (Verified Adverse Reaction, Severe, LOWERS BP SEVERELY, 07/03/17) nitrofurantoin (Verified Adverse Reaction, Severe, SEIZURES, 07/03/17) Home Meds Active Scripts Clonidine Hcl (CLONIDINE HCL) 0.2 Mg Tablet, 0.2 MG PO BID, #60 TAB Prov:CARA BORGES 07/06/17 Reported Medications Aspirin (ASPIRIN) 81 Mg Tab.chew, 81 MG PO QDAY, TAB.CHEW 07/03/17 Acetaminophen (TYLENOL) 325 Mg Tablet, 325 MG PO PRN Y for PAIN, TAB 12/21/16 Tolterodine Tartrate (TOLTERODINE TARTRATE) 2 Mg Tablet, 1 TAB PO QDAY 12/21/16 Tramadol Hcl (TRAMADOL HCL) 50 Mg Tablet, 2 TAB PO BID, TAB 12/21/16 Amlodipine Besylate (AMLODIPINE BESYLATE) 5 Mg Tablet, 1 TAB PO QDAY, TAB 12/21/16 Valsartan (DIOVAN) 320 Mg Tablet, 1 TAB PO QDAY 12/21/16 Divalproex Sodium (DEPAKOTE) 250 Mg Tablet.dr, 250 MG PO BID, TAB 12/21/16 Reviewed Nurses Notes: Yes Old Medical Records Reviewed: Yes Hx Smoking: No Smoking Status: Never Smoker Exposure to Second Hand Smoke?: No Hx Substance Use Disorder: No Hx Alcohol Use: No Physical Exam General Appearance: Unresponsive full arrest [ ] Eyes: Pupils equal round 3 mm and fixed Respiratory: No spontaneous respiration Cardiac: Asystolic no spontaneous cardiac in out of VENKATESH[ ] Gastrointestinal: Abdomen soft and nontender unable to assess pain Musculoskeletal: Neck: Neck is supple and non tender. GCS of 3T Skin: No rashes or lesions. [ ] DIFFERENTIAL DIAGNOSIS: After history and physical exam differential diagnosis was considered for cardiac arrest full code Medical Decision Making ED Course/Re-evaluation ED Course Clinical course medical decision making 86-year-old female brought here in full arrest ACLS protocol and acted 2 rounds of epi given in the field several rounds given here including bicarbonate calcium amiodarone patient on a intubated Intubation patient with a 7.5 on a Mac 4 with good placement a single attempt end-tidal CO2 only at 8 on arrival at his highest 12 good waveform showing only 60% confirm tube placement placement of right femoral with Salinger technique a triple lumen catheter was placed with the 1st attempt good blood return I due to entitle CO2 asystole with occasional PDA after multiple rounds are given protocol code was terminated time of pronounced Decision to Disposition Date: Jul 07, 2017 Decision to Disposition Time: 12:47 Depart Departure Impression: Primary Impression: Cardiac arrest Condition: Referrals: KELVIN HARE DO (PCP) JOSE ZAMUDIO MD Jul 07, 2017 12:47
== END 2017-07-07 13:40 | disposition expired ==
LOC: ER 12:34
DX: I46.9 Cardiac arrest, cause unspecified (principal)
CPT/HCPCS: 92950; 99285

== ENCOUNTER → 2017-07-07 | Outpatient (CLI) | payer MEDICARE, OTHER ==
[~2017-07-07] MED LIST changes: +ASPI81TA94 PO; +CLON-329 PO
== END ==
LOC: AMB 12:16
PROVIDERS: ATTEND Nurse Practitioner
DX: I46.9 Cardiac arrest, cause unspecified (principal)
CPT/HCPCS: A0425; A0433